=== PATIENT | male | born 1950 | race Caucasian/White ===

== ENCOUNTER 2022-03-06 11:24 | Emergency (ER) | payer OTHER ==
--- NOTE | 2022-03-06 13:22 | ER ---
Nurse's Notes [facility] Name: Shabbir Cunningham Age: 71 yrs Sex: Male : 1950 Arrival Date: 03/06/2022 Time: 11:50 Bed 19 Private MD: Diagnosis: Encounter for change or removal of drains Presentation: 03/06 11:54 Chief complaint: EMS states: toned out for gallbladder bag leak. Drain was placed Oct 2 eh3 at [facility]. Coronavirus screen: Vaccine status: Patient reports receiving the 2nd dose of the covid vaccine. Ebola Screen: No symptoms or risks identified at this time. Initial Sepsis Screen: Does the patient meet any 2 criteria? No. Patient's initial sepsis screen is negative. Does the patient have a suspected source of infection? No. Patient's initial sepsis screen is negative. Risk Assessment: Do you want to hurt yourself or someone else? Patient reports no desire to harm self or others. Onset of symptoms was March 06, 2022. 11:54 Method Of Arrival: EMS: [facility] 11:54 Acuity: JOANN 4 eh3 Triage Assessment: 11:55 General: Appears in no apparent distress. comfortable, Behavior is calm, cooperative, eh3 appropriate for age. Pain: Denies pain. 11:55 EENT: No deficits noted. Neuro: Level of Consciousness is awake, alert, obeys commands, eh3 Oriented to person, place, time, situation. Cardiovascular: Capillary refill < 3 seconds Patient's skin is warm and dry. Respiratory: Airway is patent Respiratory effort is even, unlabored, Respiratory pattern is regular, symmetrical. GI: Abdomen is round non-distended, Gallbladder drain tubing is broken between insertion site and bag. : No signs and/or symptoms were reported regarding the genitourinary system. Derm: No signs and/or symptoms reported regarding the dermatologic system. Musculoskeletal: No signs and/or symptoms reported regarding the musculoskeletal system. Historical: - Allergies: 11:55 PENICILLINS; eh3 - PMHx: 11:55 NIDDM; Myocardial infarction; Gallstone; eh3 - PSHx: 11:55 2 cardiac stents; eh3 - Immunization history:: Adult Immunizations up to date. - Social history:: Smoking status: Patient denies any tobacco usage or history of. Patient/guardian denies using alcohol. - Family history:: not pertinent. - Hospitalizations: : No recent hospitalization is reported. Screenin:59 [facility] ED Fall Risk Assessment (Adult) History of falling in the last 3 months, 3 including since admission No falls in past 3 months (0 pts) Confusion or Disorientation No (0 pts) Intoxicated or Sedated No (0 pts) Impaired Gait Yes (1 pt) Mobility Assist Device Used No (0 pt) Altered Elimination Yes (1 pt) Score/Fall Risk Level 0 - 2 = Low Risk. Abuse screen: Denies threats or abuse. Denies injuries from another. Nutritional screening: No deficits noted. Tuberculosis screening: No symptoms or risk factors identified. Assessment: 11:59 Reassessment: No changes from previously documented assessment. See triage assessment. 3 12:45 Reassessment: Replaced stopcock on gallbladder drain tubing, pt was able to flush the eh3 tubing successfully. Vital Signs: 11:54 BP 119 / 69; Pulse 65; Resp 18; Temp 98.4(O); Pulse Ox 97% ; Weight 76.2 kg; Height 5 eh3 ft. 9 in. (175.26 cm); Pain 0/10; 12:45 BP 124 / 76; Pulse 67; Resp 18; Pulse Ox 97% on R/A; eh3 11:54 Body Mass Index 24.81 (76.20 kg, 175.26 cm) 3 ED Course: 11:50 Patient arrived in ED. 3 11:50 Rene Plasencia MD is Attending Physician. rn 11:55 Triage completed. 3 11:55 Arm band placed on right wrist. 3 11:59 Patient has correct armband on for positive identification. Bed in low position. Call 3 light in reach. Side rails up X2. Pulse ox on. NIBP on. Door closed. Noise minimized. Warm blanket given. 12:54 Liz Reeder, RN is Primary Nurse. 3 13:42 No provider procedures requiring assistance completed. Patient did not have IV access 3 during this emergency room visit. Administered Medications: No medications were administered Medication: 13:42 VIS not applicable for this client. 3 Outcome: 13:21 Discharge ordered by . rn 13:42 Discharged to home ambulatory, with friend. 3 13:42 Condition: stable 13:42 Discharge instructions given to patient, Instructed on discharge instructions, follow up and referral plans. Demonstrated understanding of instructions, follow-up care. 13:45 Patient left the ED. eh3 Signatures: Rene Plasencia MD MD rn Hall, Erin, RN RN 3
--- NOTE | 2022-03-06 13:22 | EDPHYS ---
Physician Documentation [facility] Name: Shabbir Cunningham Age: 71 yrs Sex: Male : 1950 Arrival Date: 03/06/2022 Time: 11:50 Bed 19 Private MD: ED Physician Rene Plasencia HPI: 03/06 13:07 This 71 yrs old Male presents to ER via EMS with complaints of gallbladder drain is rn broken. 13:07 Pt reports gallbladder drain broke at valve, is leaking. No other acute complaints. rn Placed in [place] in December in preparation for cholecystectomy. . Onset: The symptoms/episode began/occurred just prior to arrival. Severity of symptoms: At their worst the symptoms were mild in the emergency department the symptoms are unchanged. The patient has not experienced similar symptoms in the past. The patient has not recently seen a physician. Historical: - Allergies: 11:55 PENICILLINS; eh3 - PMHx: 11:55 NIDDM; Myocardial infarction; Gallstone; eh3 - PSHx: 11:55 2 cardiac stents; eh3 - Immunization history:: Adult Immunizations up to date. - Social history:: Smoking status: Patient denies any tobacco usage or history of. Patient/guardian denies using alcohol. - Family history:: not pertinent. - Hospitalizations: : No recent hospitalization is reported. ROS: 13:07 Constitutional: Negative for fever, chills, and weight loss, Cardiovascular: Negative rn for chest pain, palpitations, and edema, Respiratory: Negative for shortness of breath, cough, wheezing, and pleuritic chest pain, Abdomen/GI: Negative for abdominal pain, nausea, vomiting, diarrhea, and constipation, Neuro: Negative for headache, weakness, numbness, tingling, and seizure. Exam: 13:07 Constitutional: This is a well developed, well nourished patient who is awake, alert, rn and in no acute distress. Cardiovascular: Regular rate and rhythm. No pulse deficits. Respiratory: No increased work of breathing, no retractions or nasal flaring. Abdomen/GI: soft, non-tender, right sided drain with break point at catheter valve, leakage of non-bloody bilious fluid Vital Signs: 11:54 BP 119 / 69; Pulse 65; Resp 18; Temp 98.4(O); Pulse Ox 97% ; Weight 76.2 kg; Height 5 3 ft. 9 in. (175.26 cm); Pain 0/10; 12:45 BP 124 / 76; Pulse 67; Resp 18; Pulse Ox 97% on R/A; 3 11:54 Body Mass Index 24.81 (76.20 kg, 175.26 cm) 3 MDM: 11:50 Patient medically screened. rn 13:07 Differential Diagnosis malfunction of catheter, broken valve, torn tubing.. rn 13:12 Data reviewed: vital signs, nurses notes, and as a result, I will discharge patient. rn Counseling: I had a detailed discussion with the patient and/or guardian regarding: the historical points, exam findings, and any diagnostic results supporting the discharge/admit diagnosis, the need for outpatient follow up, to return to the emergency department if symptoms worsen or persist or if there are any questions or concerns that arise at home. 13:20 Response to treatment: the patient's symptoms have resolved after treatment, the rn patient's condition has returned to base line, and as a result, I will discharge patient. Special discussion: I discussed with the patient/guardian in detail that at this point there is no indication for admission to the hospital. It is understood, however, that if the symptoms persist or worsen the patient needs to return immediately for re-evaluation. ED course: Replacement connection found and applied, draining well, supplied patient with saline to flush. Will f/u as scheduled with his surgeon, has appt coming up.. Administered Medications: No medications were administered Disposition Summary: 03/06/22 13:21 Discharge Ordered Location: Home rn Problem: new rn Symptoms: have improved rn Condition: Stable rn Diagnosis - Encounter for change or removal of drains rn Followup: rn - With: Private Physician - When: As needed - Reason: Recheck today's complaints, Re-evaluation by your physician Discharge Instructions: - Discharge Summary Sheet rn - Biliary Drainage Catheter Placement, Care After rn - Biliary Drainage Catheter Home Guide rn Forms: - Medication Reconciliation Form rn - Thank You Letter rn - Antibiotic clinical rn liaison - Prescription Opioid Use rn Signatures: Rene Plasencia MD MD rn ReederLiz RN RN [facility]
[2022-03-06 13:50] VITALS: TEMP 98.4; O2SAT 97
[2022-03-06 13:51] VITALS: BP 124/76
== END 2022-03-06 13:45 | disposition home or self-care (01) ==
LOC: ER 11:24
DX: Z48.03 Encounter for change or removal of drains (principal)
CPT/HCPCS: 99283

== ENCOUNTER 2023-04-07 09:29 | Day surgery (SDC) | payer OTHER ==
--- NOTE | 2023-04-05 12:11 | RAD REPORT ---
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 Lungs: No evidence of edema or pneumonia. Pleural: No significant pleural effusions or pneumothorax. Cardiac: The heart size is within normal limits. Mediastinum: Within normal limits. Bones: No acute fractures. Other: None IMPRESSION: No acute cardiopulmonary disease.
[2023-04-05 12:12] LABS: Potassium 3.6 mEq/L (3.5-5.1); Protime INR 1.07
[2023-04-05 12:16] LABS: Absolute Lymphocytes (CBC) 1.2 K/uL (0.7-4.9); Hematocrit 41.5 % (39.6-49.0); Lymphocytes % 25.9 % (15.3-44.8); MCV 93.3 fL (80-100); MPV 8.2 fL (7.6-11.3); Platelets 113 thou/uL (152-406); RBC Red Blood Cell Count 4.44 M/uL (4.33-5.43)
--- NOTE | 2023-04-06 13:24 | EKG ---
Test Date: 2023-04-05 Test Time: 12:43:51 Chimney Mechanic: BILL MEASUREMENT RESULTS: Intervals: Rate: 68 AR: 176 QRSD: 88 QT: 416 QTc: 442 [place]: P: 49 AR: 176 QRS: 64 T: 61 INTERPRETIVE STATEMENTS: Normal sinus rhythm Possible Lateral infarct, age undetermined Abnormal ECG No previous ECG available for comparison Electronically Signed On 04-06-23 13:22:14 [employer] MANAGER by Robbie Jang
[2023-04-07] MEDS ORDERED: LIDOCAINE 1% 20 ML MDV ONE (09:39)
[2023-04-07] MEDS ORDERED: HEPA 1000U/500MLS 2,000 UNIT/1,000 ML BAG IV ONE (09:39)
[2023-04-07] MEDS ORDERED: NA CHLORIDE 0.9% 500 ML ONE (10:34)
[2023-04-07] MEDS ORDERED: FENTANYL CITR 100 MCG/2 ML ONE (10:39)
[2023-04-07] MEDS ORDERED: MIDAZOLAM HCL 2 MG/2 ML INJ ONE (10:39)
[2023-04-07 14:17] VITALS: BP 126/71; O2SAT 98
--- NOTE | 2023-04-07 15:12 | OP ---
Date of Procedure: 04/07/2023 Surgeon: STAS MEADE Procedure Performed: Bilateral carotid angiogram. Indication: Carotid stenosis. Access: Right femoral artery, 6-Micronesian, closed with 6-Micronesian Angio-Seal. Complications: None. Bleeding: Less than 20 mL. Description Of Procedure: After risks, benefits, and alternatives were explained, the patient agreed to the procedure and signed informed consent. The patient was brought into the cardiac catheterizat ion laboratory, prepped and draped in the usual sterile fashion. Then, I accessed right femoral maximiliano ry using micropuncture kit, ultrasound guidance, fluoroscopy, placed a 6-Micronesian Malone sheath, and took a 6-Micronesian 3DRC catheter into the aortic root, and then engaged the right common carotid, took s tandard views and then left common carotid, took standard views, and then removed the catheter and th e sheath, and placed 6-Micronesian Angio-Seal for closure. Good hemostasis. Findings: 1.Right common carotid is normal. Right external carotid is normal and the right internal carotid p roximally is normal, but up high inside the skull, there is a focal 60% to 70% stenosis. 2.Left common carotid is normal. Left external carotid with proximal 50% and the left internal pearl tid has 80% stenosis. Conclusion: 1.Severe left internal carotid artery stenosis, plan for endarterectomy. 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 Plan for possible neuro interventionalist evaluation on this reticular lesion. SR/MODL Voice ID: [id number] Report ID: [id number]
== END 2023-04-07 14:05 | disposition home or self-care (01) ==
LOC: CCL 09:29
PROVIDERS: ATTEND Internal Medicine
DX: I65.23 Occlusion and stenosis of bilateral carotid arteries (principal); I25.10 Atherosclerotic heart disease of native coronary artery without angina pectoris; I10 Essential (primary) hypertension; E78.5 Hyperlipidemia, unspecified; Z72.0 Tobacco use; Z79.82 Long term (current) use of aspirin; Z79.02 Long term (current) use of antithrombotics/antiplatelets; Z79.899 Other long term (current) drug therapy; Z88.0 Allergy status to penicillin; Z82.49 Family history of ischemic heart disease and other diseases of the circulatory system
CPT/HCPCS: 93005; 85025; 80048; 36415; 83721; 85610; 85730; 71046; 36222; 76937; C1893; C1760; G0269; J2001; J2250; J3010; J7040; 99152; 99153